=== PATIENT | female | born 1970 | race Caucasian/White ===

== ENCOUNTER 2024-03-15 12:02 | Emergency (ER) | payer OTHER, SELFPAY ==
[2024-03-15 12:24] VITALS: BP 118/78
[2024-03-15 12:47] LABS: % Basophils 0.4 % (0-2); % Eosinophils 2.8 % (0-6); % Immature Granulocytes 0.2 % (0-0.5); % Lymphocytes 16.1 % (20.5-51.1); % Monocytes 11.4 % (1.7-9.3); % Neutrophils 69.1 % (42.2-75.2); Absolute Eosinophils 0.3 10^3/uL (0-0.7); Absolute Lymphocytes 1.5 10^3/uL (1.2-3.4); Absolute Neutrophils 6.2 10^3/uL (1.4-6.5); Hematocrit 35.7 % (37.0-47.0); Hemoglobin 12.3 g/dL (12.0-16.0); Mean Corp Hgb Conc. 34.5 g/dL (33.0-37.0); Mean Corpuscular Hgb 31.1 pg (27.0-31.0); Mean Corpuscular Volume 90.2 fL (81.0-99.0); Mean Platelet Volume 9.1 fL (7.4-10.4); Nucleated Red Blood Cells % 0 %; Platelet Count 255 10^3/uL (130-400); Red Blood Cell Count 3.96 10^6/uL (4.20-5.40); Red Cell Dist. Width 13.2 % (11.5-14.5)
[2024-03-15 13:06] LABS: ALT (SGPT) 15 U/L (0-35); AST (SGOT) 26 U/L (14-36); Alkaline Phosphatase 88 U/L (38-126); Blood Urea Nitrogen 19 mg/dl (7-17); Calcium 9.1 mg/dl (8.4-10.2); Carbon Dioxide 22 mmol/L (22-30); Chloride 103 mmol/L (98-107); Glucose 100 mg/dl (70-99); Potassium 3.6 mmol/L (3.5-5.1); Sodium 134 mmol/L (135-145); Total Bilirubin 0.5 mg/dl (0.2-1.3); Total Protein 7.5 g/dl (6.3-8.2); eGFR > 60.00
--- NOTE | 2024-03-15 16:19 | ED.GENMED ---
History of Present Illness
<Eden Marrufo MANAGER PEDIATRIC - Last Filed: 03/16/24 08:49>
General
Chief Complaint: Vaginal Bleeding
Source: patient
Exam Limitations: none
Time Seen by Provider: 03/15/24 16:00
Nursing documentation reviewed up to this point in time: agreed with
Travel History
Have you had any contact with someone who has COVID-19?: No
Do you have any symptoms of coronavirus? Fever > 100 degrees, chills, cough, shortness of breath, sore throat, loss of taste or smell, muscle aches, or headache?: No
History of Present Illness
History of Present Illness:
53-year-old female with history of breast cancer had bilateral mastectomies, last chemotherapy was 09/2022, her chemotherapy sent her into early menopause so she has not had a period in the past 8 years.
4 days ago she started spotting with abdominal cramps. She saw [facility] [employer] [facility] Dr. Bettencourt's nurse practitioner 3 days ago, had an internal exam and had a small polyp removed from her cervix and told that she may note some spotting.
She did continue with some spotting using 1-2 many pads a day but today her bleeding increased 'like irregular.' And she has used 5 pantiliners. There have been no clots. Her abdominal cramping persists daily. She denies feeling weak or dizzy.
She denies chest pain or trouble breathing.
She also states she has been urinating more frequently than usual. No burning or urgency with urination.
Past History
<Eden Marrufo, MANAGER PEDIATRIC - Last Filed: 03/16/24 08:49>
Past History
ED Past Medical History: Cancer (Breast cancer last chemotherapy was 09/2022) and Hypothyroidism
ED Past Surgical History: Gynecological (Bilateral mastectomy)
Social History
Tobacco: Non-smoker
Alcohol: None
Personal:
Living: with family
Employment: Employed
Review of Systems
<Eden V. Day, MANAGER PEDIATRIC - Last Filed: 03/16/24 08:49>
Review of Systems
Allergies reviewed?: Yes
All Other Systems: ROS reviewed and negative except as documented in HPI and ROS
Constitutional: Denies fever or fatigue
Respiratory: Denies trouble breathing
Cardiac: Denies chest pain
ABD/GI: Reports abdominal pain (Lower abdominal cramping); Denies nausea, vomiting or anorexia
: Reports frequency and bleeding; Denies dysuria, flank pain, difficulty voiding or urgency
Phy Exam
<Eden Marrufo, MANAGER PEDIATRIC - Last Filed: 03/16/24 08:49>
Physical Exam
Physical Exam:
GENERAL: No acute distress. A&Ox3.
CONSTITUTIONAL: Afebrile.
RESPIRATORY: Regular respirations, nonlabored, lungs clear.
CARDIOVASCULAR: Regular rate and rhythm, no murmurs, no rubs.
GI: Soft, mildly tender across lower abdomen. normal BS
: Small amount blood, no clots on minipad
MUSCULOSKELETAL: Moves with ease. Well perfused.
SKIN: Warm, dry, pink
PSYCH: Normal mood and affect. Well kept, interactive and appropriate
NEUROLOGIC: Awake, alert and oriented. No focal neurological deficits
Course
<Eden Marrufo, MANAGER PEDIATRIC - Last Filed: 03/16/24 08:49>
Orders/Labs/Results
Orders:
Orders
03/15/24 12:39
Type+Screen Urgent
CMP [Comprehensive Metabolic Panel] Urgent
Complete Blood Count/With Diff Urgent
HCG, Serum Qualitative Screen Urgent
Comment: SERUM BETA HCG QUALITATIVE ADDED ON BY FLOOR 4:30PM 03-15-24
03/15/24 16:23
US Pelvis W Transvag Combined Urgent
Comment:
Reason For Exam: abd cramping DUB
03/15/24 16:25
Add On- LAB Urgent
Tests Added?: serum beta HCG Qualitative
03/15/24 16:35
Urinalysis Reflex To Culture Urgent
Date Specimen was Collected: 03/15/24
Time Specimen was Collected: 16:34
Urine Microscopic Reflex Cult Urgent
Abnormal Lab Results
03/15/24 03/15/24
12:39 16:35
RBC 3.96 L 10^6/uL
(4.20-5.40)
Hct 35.7 L %
(37.0-47.0)
MCH 31.1 H pg
(27.0-31.0)
Absolute Monos (auto) 1.0 H 10^3/uL
(0.1-0.6)
Lymphocytes % 16.1 L %
(20.5-51.1)
Monocytes % 11.4 H %
(1.7-9.3)
Sodium 134 L mmol/L
(135-145)
BUN 19 H mg/dl
(7-17)
Glucose 100 H mg/dl
(70-99)
Urine Ketones Trace A
(Negative)
Ur Occult Blood Reflex 1+ A
(Negative)
03/15/24 12:39
03/15/24 12:39
Vital Signs
Initial and Last Documented VS:
Initial Vital Signs
Temp Pulse Resp BP Pulse Ox
99.9 F 86 16 118/78 97
03/15/24 12:24 03/15/24 12:24 03/15/24 12:24 03/15/24 12:24 03/15/24 12:24
Last Documented Vital Signs
Temp Pulse Resp BP Pulse Ox
99.9 F 86 16 118/78 97
03/15/24 12:24 03/15/24 12:24 03/15/24 12:24 03/15/24 12:24 03/15/24 12:24
Radiology Special Procedure Tech consulted with Physician
Radiology Special Procedure Tech consulted with physician?: Yes
Name of Physician Consulted: Linda
<Alla Mckeon MD - Last Filed: 03/15/24 19:11>
Orders/Labs/Results
Orders:
Orders
03/15/24 12:39
Type+Screen Urgent
CMP [Comprehensive Metabolic Panel] Urgent
Complete Blood Count/With Diff Urgent
HCG, Serum Qualitative Screen Urgent
Comment: SERUM BETA HCG QUALITATIVE ADDED ON BY FLOOR 4:30PM 03-15-24
03/15/24 16:23
US Pelvis W Transvag Combined Urgent
Comment:
Reason For Exam: abd cramping DUB
03/15/24 16:25
Add On- LAB Urgent
Tests Added?: serum beta HCG Qualitative
03/15/24 16:35
Urinalysis Reflex To Culture Urgent
Date Specimen was Collected: 03/15/24
Time Specimen was Collected: 16:34
Urine Microscopic Reflex Cult Urgent
Abnormal Lab Results
03/15/24 03/15/24
12:39 16:35
RBC 3.96 L 10^6/uL
(4.20-5.40)
Hct 35.7 L %
(37.0-47.0)
MCH 31.1 H pg
(27.0-31.0)
Absolute Monos (auto) 1.0 H 10^3/uL
(0.1-0.6)
Lymphocytes % 16.1 L %
(20.5-51.1)
Monocytes % 11.4 H %
(1.7-9.3)
Sodium 134 L mmol/L
(135-145)
BUN 19 H mg/dl
(7-17)
Glucose 100 H mg/dl
(70-99)
Urine Ketones Trace A
(Negative)
Ur Occult Blood Reflex 1+ A
(Negative)
03/15/24 12:39
03/15/24 12:39
Vital Signs
Initial and Last Documented VS:
Initial Vital Signs
Temp Pulse Resp BP Pulse Ox
99.9 F 86 16 118/78 97
03/15/24 12:24 03/15/24 12:24 03/15/24 12:24 03/15/24 12:24 03/15/24 12:24
Last Documented Vital Signs
Temp Pulse Resp BP Pulse Ox
99.9 F 86 16 118/78 97
03/15/24 12:24 03/15/24 12:24 03/15/24 12:24 03/15/24 12:24 03/15/24 12:24
<Eden Marrufo, MANAGER PEDIATRIC - Last Filed: 03/16/24 08:49>
MDM/Problems Addressed
Differential Diagnosis Includes:
Bleeding polyp, DUB, malignancy
MDM/Problems Addressed:
53-year-old female with history of breast cancer had bilateral mastectomies, last chemotherapy was 09/2022, her chemotherapy sent her into early menopause so she has not had a period in the past 8 years.
4 days ago she started spotting with abdominal cramps. She saw [employer] [facility] Dr. Bettencourt's nurse practitioner 3 days ago, had an internal exam and had a small polyp removed from her cervix and told that she may note some spotting.
She did continue with some spotting using 1-2 many pads a day but today her bleeding increased 'like irregular.' And she has used 5 pantiliners. There have been no clots. Her abdominal cramping persists daily. She denies feeling weak or dizzy.
She denies chest pain or trouble breathing.
She also states she has been urinating more frequently than usual. No burning or urgency with urination.
NAD
4:24 PM
CBC normal
CMP normal
hCG neg
6:20 PM
UA negative
ultrasound pelvis radiology report read: IMPRESSION:
1. Complex material in the endometrial and endocervical canal most suggestive of blood products.
2. 2.3 cm simple cyst/dominant follicle in left ovary.
Pt examined by Dr. Mckeon
Consulted [employer] [facility] Dr. Stark who read the ultrasound and agrees that since patient is stable and no significant bleeding nothing further needs to be done at this point but she recommends moving her [facility] [facility] appointment.
<Eden Marrufo NP - Last Filed: 03/16/24 08:49>
*Critical Care Note
Total Time (30-74mins, 75-104mins- exclusive of procedures): Not Applicable
ED Attending Note
<Eden Marrufo NP - Last Filed: 03/16/24 08:49>
-
Portions of this chart may have been created with voice recognition software.� Occasional wrong word or��sound alike� substitutions may have occurred due to the inherent limitations of voice recognition software.
<Alla Mckeon MD - Last Filed: 03/15/24 19:11>
ED Attending Note
Patient seen and examined by attending physician: Yes
I performed the substantive portion of visit, reviewed & personally made and approve the management plan that is documented in note by myself or TOPHER.: Yes
ED Attending Note:
53-year-old female presents with vaginal bleeding that started on or about . She saw her doctor on Friday and a polyp was removed. Bleeding continued lightly throughout the weekend but seem to be a little bit heavier today. She denies
clots, bleeding elsewhere, chest pain, shortness of breath, abdominal pain, or other complaints. On exam, abdomen soft, nontender patient awake alert well-appearing well-perfused. Ultrasound labs noted, hemodynamically stable, close [employer] follow-up
assured, no emergent cause for bleeding noted at this time. Patient aware of importance of follow-up and reasons return to the ER
Discharge Plan
Departure
Patient Disposition: Home (Routine Discharge)
Date of Disposition: 03/15/24
Time of Disposition: 18:56
Patient with high blood pressure during this ER visit?: No
Condition: Good
Discharge Problem:
Vaginal bleeding, Abdominal cramping
Prescriptions:
No Action
multivitamin [Daily Multiple] 1 EACH tablet
1 ea PO DAILY
levothyroxine 25 MCG tablet
25 mcg PO DAILY
noreth-ethinyl estradiol-iron [Wymzya Fe] 1 EACH tablet,chewable
1 ea PO
Lactobac 2-Bifido 1-S. therm [High Potency Probiotic] 1 CAP capsule
1 cap PO DAILY Qty: 30 0RF
prednisone 10 MG tablet
10 mg PO DAILY Qty: 70 0RF
Rx Instructions:
Taper: 40mg daily for one week, 30mg daily for one week, 20mg daily for one week, 10mg daily for one week
pantoprazole 40 MG tablet,delayed release (DR/EC)
40 mg PO DAILY Qty: 30 0RF
Referrals:
Brittaney Bettencourt MD [Active] - Call in 1-3 days for appt
Lizz Herrera MD [Family Provider] -
Activity Restrictions/Additional Instructions:
As we discussed, call your [facility] [facility] [facility] office tomorrow, let them know I spoke with Dr. Stark and she recommended move your appointment up. Since no significant bleeding, nothing more to do at this point.
Interventions
Interventions:
*Risk Screen - Suicide Last Done: 03/15/24 12:21
*General Assessment Last Done: 03/15/24 12:21
*Neglect/Abuse Screening Last Done: 03/15/24 12:21
ED- Fall Risk Assessment Last Done: 03/15/24 16:00
*ED COVID-19 Vaccine History Last Done: 03/15/24 19:10
*Nursing Disposition Last Done: 03/15/24 19:10
ED-Female Genitourinary Assessment Last Done: 03/15/24 16:00
Discharge Date and Time
Discharge Date/Time: 03/15/24 19:11
Print Language: ICELANDIC
[2024-03-15 16:45] LABS: Urine Albumin Negative (Neg - Trace); Urine Bilirubin Negative (Negative); Urine Character Clear (Clear); Urine Color Yellow; Urine Glucose Negative (Negative); Urine Ketone Trace (Negative); Urine Leukocyte Negative (Negative); Urine Nitrite Negative (Negative); Urine Occult Blood 1+ (Negative); Urine Urobilinogen Negative (Neg - 1+)
[2024-03-15 16:54] LABS: Urine Mucus Few; Urine Red Blood Cell 0-2 /HPF (0-2); Urine Squamous Cell 0-2 /LPF (Few); Urine White Cell None Seen /HPF (0-5)
[2024-03-15 17:21] LABS: HCG, Serum Qualitative Screen Negative
== END 2024-03-15 19:11 | disposition home or self-care (01) ==
LOC: EMR 12:02
PROVIDERS: Registered Nurse; Student in an Organized Health Care Education/Training Program; EMERGENCY PHYSICIAN Emergency Medicine; FAMILY PHYSICIAN Family Medicine
DX: N93.8 Other specified abnormal uterine and vaginal bleeding (principal); R10.9 Unspecified abdominal pain; E03.9 Hypothyroidism, unspecified; Z85.3 Personal history of malignant neoplasm of breast; Z90.13 Acquired absence of bilateral breasts and nipples
CPT/HCPCS: 99284; 76830; 76856; 80053; 81003; 81015; 84703; 85025; 86850; 86900; 86901

== ENCOUNTER → 2024-04-23 17:18 | Outpatient (REF) | payer OTHER, SELFPAY | LOC: CLAB 17:18 | PROVIDERS: ATTENDING PHYSICIAN Obstetrics & Gynecology Gynecology | DX: N95.0 Postmenopausal bleeding (principal) | CPT/HCPCS: 88305 ==

== ENCOUNTER → 2024-04-30 09:25 | Outpatient (REF) | payer OTHER, SELFPAY | LOC: HWRAD 09:25 | PROVIDERS: ATTENDING PHYSICIAN Physician Assistant; FAMILY PHYSICIAN Family Medicine | DX: M81.0 Age-related osteoporosis without current pathological fracture (principal); Z13.820 Encounter for screening for osteoporosis | CPT/HCPCS: 73100; 73523; 77080 ==

== ENCOUNTER → 2024-08-30 14:38 | Outpatient (REF) | payer OTHER, SELFPAY | LOC: HWRAD 14:38 | PROVIDERS: ATTENDING PHYSICIAN Nurse Practitioner Adult Health; FAMILY PHYSICIAN Family Medicine | DX: N83.209 Unspecified ovarian cyst, unspecified side (principal) | CPT/HCPCS: 76830; 76856 ==

== ENCOUNTER → 2024-11-05 06:26 | Day surgery (SDC) | payer OTHER, SELFPAY | LOC: GI 06:26 | PROVIDERS: ATTENDING PHYSICIAN Internal Medicine | DX: K62.89 Other specified diseases of anus and rectum (principal); Z98.0 Intestinal bypass and anastomosis status; K50.80 Crohn's disease of both small and large intestine without complications | CPT/HCPCS: 45380; 88305 ==

== ENCOUNTER → 2024-12-24 10:08 | Outpatient (REF) | payer OTHER, SELFPAY | LOC: MRI 3T 10:08 | PROVIDERS: ATTENDING PHYSICIAN Internal Medicine; FAMILY PHYSICIAN Family Medicine | DX: K50.818 Crohn's disease of both small and large intestine with other complication (principal) | CPT/HCPCS: 72197; 74183; A9575 ==